=== PATIENT | female | born 1975 | race Caucasian/White ===

== ENCOUNTER 2016-08-04 16:03 | Emergency (ER) | payer BC ==
[2016-08-04] MEDS ORDERED: ACETAMINOPHEN 500 MG TAB PO ONE (17:05)
[2016-08-04] MEDS ORDERED: ACETAMINOPHEN 500 MG TAB ONE (17:06)
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
[2016-08-04 18:52] VITALS: BP 114/82; PULSE 70; RESP 16; O2SAT 97
[2016-08-04 18:53] VITALS: TEMP 98.2
== END 2016-08-09 09:20 | disposition home or self-care (01) ==
PROC: 0HQ1XZZ Repair Face Skin, External Approach (ICD-10-PCS; principal; 2016-08-04)
DX: S01.81XA Laceration without foreign body of other part of head, initial encounter (principal); S69.91XA Unspecified injury of right wrist, hand and finger(s), initial encounter; J45.909 Unspecified asthma, uncomplicated; W22.01XA Walked into wall, initial encounter; Y99.8 Other external cause status; Y93.66 Activity, soccer
CPT/HCPCS: L3807